=== PATIENT | male | born 1980 | race Caucasian/White ===

== ENCOUNTER 2023-10-04 19:11 | Emergency (ER) | payer OTHER, BC ==
[~2023-10-04] VITALS: Ht 162.6 cm; Wt 122.5 kg
[2023-10-04 19:21] VITALS: BP_SYST 144; PULSE 80; RESP 16; TEMP 99.4; O2SAT 98
[2023-10-04] MEDS: KETOROLAC TROMETHAMINE 60 MG/2 ML VIAL IM ONE (19:59)
[2023-10-04] MEDS ORDERED: NAPR-1172 PO (20:33)
[2023-10-04 20:40] VITALS: BP_SYST 124; PULSE 64; RESP 16; TEMP 97.8; O2SAT 98
== END 2023-10-04 20:45 | disposition home or self-care (01) ==
LOC: SED 19:11
DX: S33.9XXA Sprain of unspecified parts of lumbar spine and pelvis, initial encounter (principal); Z79.899 Other long term (current) drug therapy; V89.2XXA Person injured in unspecified motor-vehicle accident, traffic, initial encounter; Y93.89 Activity, other specified; Y92.89 Other specified places as the place of occurrence of the external cause; Y99.8 Other external cause status
CPT/HCPCS: 99283; 72110; 96372; J1885